=== PATIENT | female | born 1990 | race Caucasian/White ===

== ENCOUNTER 2021-11-04 08:29 | Emergency (ER) | payer BC, MEDICAID ==
[2021-11-04 09:36] LABS: CORONAVIRUS COVID-19 NAA NEGATIVE (NEGATIVE); RESPIRATORY SYNCYTIAL VIR NAA NEGATIVE (NEGATIVE)
[2021-11-04 09:59] LABS: ANION GAP 9.3 meq/L (7-15); CHLORIDE,CL 106 mmol/L (98-107); SODIUM,NA 140 mmol/L (136-145)
[2021-11-04 11:00] LABS: BARBITURATE SCREEN,URINE NEGATIVE (NEGATIVE); BENZODIAZEPINES SCREEN,URINE NEGATIVE (NEGATIVE); EDDP,URINE SCREEN NEGATIVE (NEGATIVE); TCA SCREEN,URINE NEGATIVE (NEGATIVE); THC SCREEN,URINE 50 NG/ML NEGATIVE (NEGATIVE)
[2021-11-04 11:09] LABS: BUPRENORPHINE SCREEN,URINE NEGATIVE (NEGATIVE)
[2021-11-04 13:02] VITALS: BP 130/82; PULSE 72
== END 2021-11-04 13:15 | disposition home or self-care (01) ==
LOC: LL.ED 08:29
DX: O99.891 Other specified diseases and conditions complicating pregnancy (principal); R10.11 Right upper quadrant pain; R10.12 Left upper quadrant pain; Z72.0 Tobacco use; Z88.0 Allergy status to penicillin; Z88.1 Allergy status to other antibiotic agents; Z20.822 Contact with and (suspected) exposure to COVID-19; Z3A.08 8 weeks gestation of pregnancy
CPT/HCPCS: 0241U; 36415; 76801; 76817; 80053; 80305-QW; 81003; 82150; 83690; 83735; 85025; 99284-25

== ENCOUNTER 2022-01-09 10:04 | Emergency (ER) | payer MEDICAID ==
[2022-01-09] MEDS ORDERED: Sodium Chloride 0.9% 10 ML Syringe FLUSH PRN (10:27)
[2022-01-09] MEDS ORDERED: Ondansetron 4 MG/2 ML SDV IVPUSH ONE (10:27)
[2022-01-09] MEDS: Sodium Chloride 0.9% 1,000 ML IV SCH ×2 (10:45→11:46)
[2022-01-09] MEDS ORDERED: diphenhydrAMINE 50 MG/ML SDV IVPUSH ONE (11:00)
[2022-01-09] MEDS ORDERED: Magnesium Sulfate/Water 2 GM in Premix Bag 1 BAG IV ONE (11:06)
[2022-01-09 11:11] LABS: ANION GAP 9.5 meq/L (7-15); CHLORIDE,CL 104 mmol/L (98-107); SODIUM,NA 137 mmol/L (136-145)
[2022-01-09 16:51] VITALS: BP 97/64; PULSE 63
== END 2022-01-09 13:20 | disposition home or self-care (01) ==
LOC: LL.ED 10:04
DX: O99.891 Other specified diseases and conditions complicating pregnancy (principal); R20.0 Anesthesia of skin; R51.9 Headache, unspecified; O99.282 Endocrine, nutritional and metabolic diseases complicating pregnancy, second trimester; E86.0 Dehydration; Z88.0 Allergy status to penicillin; Z86.16 Personal history of COVID-19; Z72.0 Tobacco use; Z3A.17 17 weeks gestation of pregnancy
CPT/HCPCS: 36415; 80053; 81003; 85025; 96365; 96366; 96375; 99284; 99284-25; J1200; J2405; J3475; J3490; J7030

== ENCOUNTER 2022-04-24 14:06 | Emergency (ER) | payer MEDICAID ==
[2022-04-24 14:46] VITALS: BP 126/75; PULSE 92
[2022-04-24 15:03] LABS: ANION GAP 12.5 meq/L (7-15)
== END 2022-04-24 15:30 | disposition home or self-care (01) ==
LOC: LL.ED 14:06
DX: R07.81 Pleurodynia (principal); F17.210 Nicotine dependence, cigarettes, uncomplicated; Z88.0 Allergy status to penicillin; Z88.8 Allergy status to other drugs, medicaments and biological substances; Z79.899 Other long term (current) drug therapy
CPT/HCPCS: 36415; 71045; 80053; 84484; 85025; 93005; 99285

== ENCOUNTER 2023-05-06 16:57 | Emergency (ER) | payer MEDICAID ==
[2023-05-06 17:36] LABS: BASOPHILS ABSOLUTE AUTO 0.04 K/uL (0.00-0.20); BASOPHILS PERCENT AUTO 0.4 % (0.0-2.0); EOSINOPHILS ABSOLUTE AUTO 0.39 K/uL (0.00-0.50); EOSINOPHILS PERCENT AUTO 4.3 % (0.0-5.0); HEMATOCRIT 36.2 % (34.0-46.0); HEMOGLOBIN 11.9 g/dL (11.7-15.5); LYMPHOCYTES ABSOLUTE AUTO 1.89 K/uL (0.50-3.50); LYMPHOCYTES PERCENT AUTO 20.9 % (10.0-50.0); MEAN CORPUSCULAR HEMOGLOBIN 28.8 pg (28.2-33.3); MEAN CORPUSCULAR HGB CONC 32.9 g/dL (31.7-36.0); MEAN CORPUSCULAR VOLUME 87.7 fL (84.0-98.0); MONOCYTES ABSOLUTE AUTO 0.62 K/uL (0.00-1.00); MONOCYTES PERCENT AUTO 6.9 % (2.0-14.0); NEUTROPHILS PERCENT AUTO 67.5 % (45.0-80.0); PLATELET COUNT,PLT 222 K/uL (150-350); RED BLOOD CELL COUNT 4.13 M/uL (3.77-5.09)
[2023-05-06 17:38] LABS: BILIRUBIN,URINE NEGATIVE (NEGATIVE); COLOR,URINE DARK YELLOW; GLUCOSE,URINE NEGATIVE (NEGATIVE); KETONES,URINE NEGATIVE (NEGATIVE); LEUKOCYTE ESTERASE,URINE NEGATIVE (NEGATIVE); NITRITE,URINE NEGATIVE (NEGATIVE); OCCULT BLOOD,URINE LARGE (NEGATIVE); PROTEIN,URINE 30 mg/dL (NEGATIVE)
[2023-05-06 17:51] LABS: ALBUMIN 3.6 g/dL (3.4-5.0); ANION GAP 9.7 meq/L (7-15); BILIRUBIN TOTAL 0.9 mg/dL (0.2-1.0); C-REACTIVE PROTEIN 11.2 mg/dL (<=0.9); CALCIUM 8.7 mg/dL (8.5-10.1); CARBON DIOXIDE,CO2 28.3 mmol/L (21.0-32.0); CREATININE 0.85 mg/dL (0.51-1.17); EST CRCL DRUG DOSING (CG) 84.71 mL/min
[2023-05-06 17:51] LABS: APPEARANCE,URINE SLIGHTLY CLOUDY; EPITHELIAL CELLS,URINE NOT SEEN /LPF; RBC,URINE 30-40 /HPF; WBC,URINE 0-5 /HPF
[2023-05-06] MEDS: Iopamidol 612 MG/ML 100 ML Bottle IVPUSH ONE (18:34)
[2023-05-06] MEDS: Take Home: Acetaminophen/HYDROcodone 325-10 MG, 5 Tab Pack PO ONE (19:44)
[2023-05-06] MEDS: Take Home: Levofloxacin 500 MG Tab, 3 Tab Pack PO ONE (19:44)
[2023-05-06 20:34] VITALS: BP 156/98; PULSE 82
== END 2023-05-06 19:50 | disposition home or self-care (01) ==
LOC: LL.ED 16:57
DX: K81.9 Cholecystitis, unspecified (principal); J45.909 Unspecified asthma, uncomplicated; F17.210 Nicotine dependence, cigarettes, uncomplicated; Z86.16 Personal history of COVID-19; Z88.0 Allergy status to penicillin; Z79.899 Other long term (current) drug therapy; Z98.890 Other specified postprocedural states
CPT/HCPCS: 36415; 74019; 74177; 80053; 81001; 81025; 83690; 85025; 86140; 99284; A9270-GY; Q9967

== ENCOUNTER 2024-09-07 13:49 | Emergency (ER) | payer BC ==
[2024-09-07] MEDS ORDERED: Sodium Chloride 0.9% 500 ML IV SCH (14:30)
[2024-09-07] MEDS: Ketorolac 15 MG/ML SDV IVPUSH ONE (14:36)
[2024-09-07] MEDS: Sodium Chloride 0.9% 10 ML Syringe FLUSH PRN (14:36)
[2024-09-07] MEDS: Ondansetron 4 MG/2 ML SDV IVPUSH ONE (14:36)
[2024-09-07] MEDS: diphenhydrAMINE 50 MG/ML SDV IVPUSH ONE (14:37)
[2024-09-07] MEDS ORDERED: Sodium Chloride 0.9% 1,000 ML IV SCH (14:53)
[2024-09-07] MEDS: Sodium Chloride 0.9% 1,000 ML IV ONE (14:54)
[2024-09-07 16:17] VITALS: BP 137/91; PULSE 70
== END 2024-09-07 16:12 | disposition home or self-care (01) ==
LOC: LL.ED 13:49
DX: G43.909 Migraine, unspecified, not intractable, without status migrainosus (principal); J45.909 Unspecified asthma, uncomplicated; F17.210 Nicotine dependence, cigarettes, uncomplicated; Z88.1 Allergy status to other antibiotic agents; Z88.8 Allergy status to other drugs, medicaments and biological substances; Z79.899 Other long term (current) drug therapy
CPT/HCPCS: 96365; 96375; 99283; J1200; J1885; J2405; J3475; J7040; J3490

== ENCOUNTER 2025-01-14 21:49 | Emergency (ER) | payer BC ==
[2025-01-14 22:12] LABS: BASOPHILS ABSOLUTE AUTO 0.07 K/uL (0.00-0.20); BASOPHILS PERCENT AUTO 0.8 % (0.0-2.0); EOSINOPHILS ABSOLUTE AUTO 0.33 K/uL (0.00-0.50); EOSINOPHILS PERCENT AUTO 3.6 % (0.0-5.0); HEMATOCRIT 33.7 % (34.0-46.0); HEMOGLOBIN 10.9 g/dL (11.7-15.5); IMMATURE GRAN ABSOLUTE AUTO 0.01 10^3/uL (0.00-0.04); IMMATURE GRAN PERCENT AUTO 0.1 % (0.0-0.4); LYMPHOCYTES ABSOLUTE AUTO 3.07 K/uL (0.50-3.50); LYMPHOCYTES PERCENT AUTO 33.3 % (10.0-50.0); MEAN CORPUSCULAR HEMOGLOBIN 27.3 pg (28.2-33.3); MEAN CORPUSCULAR HGB CONC 32.3 g/dL (31.7-36.0); MEAN CORPUSCULAR VOLUME 84.3 fL (84.0-98.0); MONOCYTES ABSOLUTE AUTO 0.39 K/uL (0.00-1.00); MONOCYTES PERCENT AUTO 4.2 % (2.0-14.0); NEUTROPHILS ABSOLUTE AUTO 5.36 K/uL (1.40-7.00); PLATELET COUNT,PLT 278 K/uL (150-350); RED CELL DISTRIBUTION WIDTH 13.2 % (11.2-14.1); WHITE BLOOD CELL COUNT,WBC 9.2 K/uL (4.0-10.2)
[2025-01-14] MEDS: Sodium Chloride 0.9% 10 ML Syringe FLUSH PRN (22:13)
[2025-01-14] MEDS: LORazepam 2 MG/ML SDV IVPUSH ONE (22:13)
[2025-01-14 22:36] LABS: ALANINE AMINOTRANSFERASE,ALT 10 U/L (12-78); ALBUMIN 3.7 g/dL (3.4-5.0); ALKALINE PHOSPHATASE 39 IU/L (46-116); ANION GAP 4.9 meq/L (7-15); ASPARTATE AMNIOTRANSFERASE,AST 9 U/L (15-37); BILIRUBIN TOTAL 1.1 mg/dL (0.2-1.0); BLOOD UREA NITROGEN,BUN 7 mg/dL (7-18); CALCIUM 8.4 mg/dL (8.5-10.1); CARBON DIOXIDE,CO2 29.1 mmol/L (21.0-32.0); CHLORIDE,CL 107 mmol/L (98-107); CREATININE 0.81 mg/dL (0.51-1.17); GLUCOSE RANDOM 98 mg/dL (70-99); LIPASE 79 U/L (16-77); MAGNESIUM 1.9 mg/dL (1.8-2.4); POTASSIUM,K 3.6 mmol/L (3.5-5.1); PROTEIN TOTAL,TP 6.6 g/dL (6.4-8.2); SODIUM,NA 141 mmol/L (136-145)
[2025-01-14 22:37] LABS: ESTIMATED GFR 97 mL/min (>=60)
[2025-01-14] MEDS: Ketorolac 15 MG/ML SDV IVPUSH ONE (22:40)
[2025-01-14] MEDS: cloNIDine 0.1 MG Tab PO ONE (22:46)
[2025-01-14] MEDS: Take Home: LORazepam 0.5 MG Tab, 5 Tab Pack PO ONE (22:47)
[2025-01-14 23:16] VITALS: BP 136/103; PULSE 83
== END 2025-01-14 23:25 | disposition home or self-care (01) ==
LOC: LL.ED 21:49
DX: F41.9 Anxiety disorder, unspecified (principal); I10 Essential (primary) hypertension; Z88.0 Allergy status to penicillin; Z88.8 Allergy status to other drugs, medicaments and biological substances; Z79.899 Other long term (current) drug therapy; Z90.49 Acquired absence of other specified parts of digestive tract
CPT/HCPCS: 36415; 71046; 80053; 83605; 83690; 83735; 84484; 85025; 85610; 93005; 93010; 96374; 96375; 99284; 99285-25; A9270-GY; J1885; J2060

== ENCOUNTER 2025-08-28 13:55 | Emergency (ER) | payer BC ==
[2025-08-28 14:14] LABS: BASOPHILS ABSOLUTE AUTO 0.08 K/uL (0.00-0.20); BASOPHILS PERCENT AUTO 1.0 % (0.0-2.0); EOSINOPHILS ABSOLUTE AUTO 0.10 K/uL (0.00-0.50); EOSINOPHILS PERCENT AUTO 1.2 % (0.0-5.0); IMMATURE GRAN ABSOLUTE AUTO 0.01 10^3/uL (0.00-0.04); IMMATURE GRAN PERCENT AUTO 0.1 % (0.0-0.4); LYMPHOCYTES ABSOLUTE AUTO 3.16 K/uL (0.50-3.50); LYMPHOCYTES PERCENT AUTO 37.7 % (10.0-50.0); MONOCYTES ABSOLUTE AUTO 0.41 K/uL (0.00-1.00); MONOCYTES PERCENT AUTO 4.9 % (2.0-14.0); NEUTROPHILS ABSOLUTE AUTO 4.63 K/uL (1.40-7.00); NEUTROPHILS PERCENT AUTO 55.1 % (45.0-80.0); PLATELET COUNT,PLT 303 K/uL (150-350); RED BLOOD CELL COUNT 4.36 M/uL (3.77-5.09); RED CELL DISTRIBUTION WIDTH 13.8 % (11.2-14.1); WHITE BLOOD CELL COUNT,WBC 8.4 K/uL (4.0-10.2)
[2025-08-28] MEDS ORDERED: Sodium Chloride 0.9% 10 ML Syringe FLUSH PRN (14:21)
[2025-08-28] MEDS: Ketorolac 30 MG/ML SDV IVPUSH ONE (14:22)
[2025-08-28] MEDS: SUMAtriptan 6 MG/0.5 ML SDV SUBCUT ONE (14:22)
[2025-08-28] MEDS: Ondansetron 4 MG/2 ML SDV IVPUSH PRN (14:24)
[2025-08-28 14:28] LABS: INR 1.0 (0.9-1.1); PTT,PARTIAL THROMBOPLSTIN TIME 25.2 SEC (23.8-34.4)
[2025-08-28 14:32] LABS: BLOOD UREA NITROGEN,BUN 10 mg/dL (7-18); CARBON DIOXIDE,CO2 20.3 mmol/L (21.0-32.0); CHLORIDE,CL 104 mmol/L (98-107); CREATININE 0.92 mg/dL (0.51-1.17); GLUCOSE RANDOM 91 mg/dL (70-99); POTASSIUM,K 3.2 mmol/L (3.5-5.1); SODIUM,NA 141 mmol/L (136-145)
[2025-08-28 14:33] LABS: ESTIMATED GFR 83 mL/min (>=60)
[2025-08-28] MEDS: Orphenadrine 60 MG/2 ML Inj IV ONE (14:56)
[2025-08-28] MEDS: Potassium Bicarbonate/Cit Ac 20 MEQ Effervescent Tab PO ONE (15:04)
== END 2025-08-28 15:40 | disposition home or self-care (01) ==
LOC: LL.ED 13:55
DX: G43.909 Migraine, unspecified, not intractable, without status migrainosus (principal); E87.6 Hypokalemia; J45.909 Unspecified asthma, uncomplicated; Z90.49 Acquired absence of other specified parts of digestive tract; Z88.0 Allergy status to penicillin; Z88.8 Allergy status to other drugs, medicaments and biological substances
CPT/HCPCS: 36415; 70450; 80048; 83735; 84484; 85025; 85610; 85730; 93005; 93010; 96361; 96372; 96374; 96375; 99284; 99285-25; A9270-GY; J1885; J2360; J2405; J3030; J7030